=== PATIENT | female | born 1970 | race Caucasian/White ===

== ENCOUNTER 2021-09-02 14:51 | Inpatient (IN) | payer MEDICARE, MEDICAID ==
[~2021-09-02] VITALS: Ht 149.9 cm; Wt 87.3 kg
[~2021-09-02 14:51] MED LIST: ESOM40CA49 PO; LISI40TA13 PO; NOR5T PO
[2021-09-02 16:02] LABS: BASOPHILS % (AUTO) 0.4 % (0-1); EOSINOPHILS # (AUTO) 0.2 X10'3 (0-0.9); EOSINOPHILS % (AUTO) 2.5 % (0-6); HEMATOCRIT 42.9 % (35.0-45.0); HEMOGLOBIN 14.9 g/dl (12.0-16.0); LYMPHOCYTES # (AUTO) 2.5 X10'3 (1.1-4.8); LYMPHOCYTES % (AUTO) 25.7 % (21-51); MEAN CORPUSCULAR HEMOGLOBIN 30.5 PG (27.0-31.0); MEAN CORPUSCULAR HGB CONC 34.7 g/dL (33.0-36.5); MEAN PLATELET VOLUME 8.4 FL (7.4-10.4); MONOCYTES # (AUTO) 0.6 X10'3 (0-0.9); MONOCYTES % (AUTO) 6.6 % (2-12); NEUTROPHILS # (AUTO) 6.4 X10'3 (1.8-7.7); NEUTROPHILS % (AUTO) 64.8 % (42-75); PLATELET COUNT 198 X10'3 (140-440); RED BLOOD COUNT 4.88 X10'6 (4.20-5.60); RED CELL DISTRIBUTION WIDTH 13.3 % (11.5-14.5); WHITE BLOOD COUNT 9.9 X10'3 (4.5-11.0)
[2021-09-02 16:18] LABS: ALANINE AMINOTRANSFERASE 83 U/L (12-78); ALBUMIN 3.6 G/DL (3.4-5.0); ALBUMIN/GLOBULIN RATIO 0.9 (1.1-1.5); ALKALINE PHOSPHATASE 89 IU/L (46-116); ANION GAP 8 (8-16); BILIRUBIN,TOTAL 0.4 MG/DL (0.1-1.0); BLOOD UREA NITROGEN 13 MG/DL (7-18); BUN/CREATININE RATIO 14.3 (6.6-38.0); CALCIUM 9.7 MG/DL (8.5-10.1); CHLORIDE 106 MMOL/L (99-107); CREATININE 0.91 MG/DL (0.40-0.90); SODIUM 140 MMOL/L (135-145); TOTAL CARBON DIOXIDE 25.8 MMOL/L (24-32); TOTAL PROTEIN 7.5 G/DL (6.4-8.2); eGFR 65 ML/MIN
[2021-09-02 16:20] LABS: GLUCOSE 121 MG/DL (70-104); POTASSIUM 3.7 MMOL/L (3.5-5.1)
[2021-09-02 16:33] LABS: ASPARTATE AMINO TRANSFERASE 43 U/L (10-37)
[2021-09-02] MEDS ORDERED: enoxaparin 100mg/ml syringe SUBCUT ONE (21:15)
[2021-09-02] MEDS ORDERED: nitroGLYCERIN 1gm ointment UD TP ONE (21:15)
[2021-09-02] MEDS ORDERED: enoxaparin 80mg/0.8ml syringe SUBCUT ONE (21:15)
[2021-09-02] MEDS ORDERED: ASPI-1397 PO (21:26)
[2021-09-02] MEDS ORDERED: BACL10TA2 PO (21:26)
[2021-09-02] MEDS ORDERED: ATOR-2 PO (21:26)
[2021-09-02] MEDS ORDERED: ISOS120T13 PO (21:26)
[2021-09-02] MEDS ORDERED: OLOP2.5D12 EACHEYE (21:26)
[2021-09-02] MEDS ORDERED: TRAM50TA2 PO (21:26)
[2021-09-02] MEDS ORDERED: ESCI20TA39 PO (21:26)
[2021-09-02] MEDS ORDERED: NITR0.4T48 PO (21:26)
[2021-09-02] MEDS ORDERED: METO-395 PO (21:26)
[2021-09-02] MEDS ORDERED: EZET10TA48 PO (21:26)
[2021-09-02] MEDS ORDERED: magnesium 2GM in 50ml NS 50 ML IV PRN (21:50)
[2021-09-02] MEDS ORDERED: acetaminophen 325mg tablet PO PRN (21:50)
[2021-09-02] MEDS ORDERED: potassium CL 10mEq/100ml bag 100 ML IV PRN (21:50)
[2021-09-02] MEDS ORDERED: ondansetron/PF 4mg/2ml inj IV PRN (21:50)
[2021-09-02] MEDS ORDERED: metoprolol tartrate 1mg/ml inj IV PRN (21:50)
[2021-09-02] MEDS ORDERED: nitroGLYCERIN 0.4mg SUBLingual tab SL PRN (21:50)
[2021-09-02] MEDS ORDERED: magnesium hydroxide 30ml (MOM) UD suspension PO PRN (21:50)
[2021-09-02] MEDS ORDERED: magnesium 4gm in 100ml NS 100 ML IV PRN (21:50)
[2021-09-02] MEDS ORDERED: regadenoson 0.4mg/5ml syringe IV PRN (21:50)
[2021-09-02] MEDS ORDERED: aminophylline 250mg/10ml inj. IV PRN (21:50)
[2021-09-02] MEDS ORDERED: POTASSIUM BICARB 20meq eff tab 20 MEQ TABLET.EFF PO PRN ×2 (21:50)
[2021-09-02] MEDS ORDERED: mag hydrox/Alum hydrox/simeth 30ml oral suspension PO PRN (21:50)
[2021-09-02] MEDS ORDERED: PERFLUTREN PROTEIN-A MICROSPHR (Optison) 0.22 MG/ML 3ML VIAL IV ONE (21:50)
[2021-09-03] MEDS ORDERED: hydrALAZINE 20mg/ml inj. IV PRN (00:15)
[2021-09-03 01:00] VITALS: BP 172/52
[2021-09-03] MEDS: traMADol 50MG tablet PO PRN ×2 (01:19→08:03)
[2021-09-03] MEDS: normal saline 1000ml 1,000 ML IV SCH ×2 (01:27→07:50)
--- NOTE | 2021-09-03 01:55 | NUR ---
Page sent to [facility] informing of new patient needing BiPap at [facility] for sleep apnea.
[2021-09-03 02:00] VITALS: BP 124/67
[2021-09-03 06:00] VITALS: BP 127/72
[2021-09-03 06:41] LABS: BASOPHILS % (AUTO) 0.6 % (0-1); EOSINOPHILS # (AUTO) 0.3 X10'3 (0-0.9); EOSINOPHILS % (AUTO) 3.8 % (0-6); HEMATOCRIT 39.7 % (35.0-45.0); HEMOGLOBIN 13.7 g/dl (12.0-16.0); LYMPHOCYTES # (AUTO) 2.6 X10'3 (1.1-4.8); MEAN CORPUSCULAR HEMOGLOBIN 30.8 PG (27.0-31.0); MEAN CORPUSCULAR HGB CONC 34.6 g/dL (33.0-36.5); MEAN CORPUSCULAR VOLUME 89.1 FL (78-98); MEAN PLATELET VOLUME 8.4 FL (7.4-10.4); MONOCYTES # (AUTO) 0.4 X10'3 (0-0.9); MONOCYTES % (AUTO) 5.4 % (2-12); NEUTROPHILS # (AUTO) 4.4 X10'3 (1.8-7.7); NEUTROPHILS % (AUTO) 57.2 % (42-75); PLATELET COUNT 171 X10'3 (140-440); RED BLOOD COUNT 4.46 X10'6 (4.20-5.60); RED CELL DISTRIBUTION WIDTH 13.4 % (11.5-14.5); WHITE BLOOD COUNT 7.7 X10'3 (4.5-11.0)
[2021-09-03 07:02] LABS: ALANINE AMINOTRANSFERASE 66 U/L (12-78); ALBUMIN 3.3 G/DL (3.4-5.0); ALKALINE PHOSPHATASE 81 IU/L (46-116); ANION GAP 7 (8-16); ASPARTATE AMINO TRANSFERASE 30 U/L (10-37); BILIRUBIN,TOTAL 0.4 MG/DL (0.1-1.0); BLOOD UREA NITROGEN 15 MG/DL (7-18); BUN/CREATININE RATIO 23.8 (6.6-38.0); CALCIUM 9.1 MG/DL (8.5-10.1); CHLORIDE 106 MMOL/L (99-107); CHOL/HDL RATIO 8.1 (0.00-4.99); CHOLESTEROL 210 MG/DL (0-200); CREATININE 0.63 MG/DL (0.40-0.90); GLUCOSE 106 MG/DL (70-104); HDL CHOLESTEROL 26 MG/DL (35-60); LDL CHOLESTEROL 70 MG/DL (50-100); MAGNESIUM 1.8 MG/DL (1.5-2.4); POTASSIUM 3.9 MMOL/L (3.5-5.1); SODIUM 139 MMOL/L (135-145); TOTAL CARBON DIOXIDE 25.9 MMOL/L (24-32); TOTAL PROTEIN 6.7 G/DL (6.4-8.2); TRIGLYCERIDES 720 MG/DL (20-135); eGFR > 90 ML/MIN
[2021-09-03] MEDS ORDERED: metoprolol succinate 25mg (24-HOUR) SR. Tablet PO SCH (08:00)
[2021-09-03] MEDS ORDERED: isosorbide mononitrate 30mg tab.SR.24H PO SCH (08:00)
[2021-09-03] MEDS ORDERED: ezetimibe 10mg tablet PO SCH (08:00)
[2021-09-03] MEDS ORDERED: baclofen 10mg tablet PO SCH (08:00)
[2021-09-03] MEDS ORDERED: ESCITALOPRAM OXALATE 5 MG TABLET PO SCH (08:00)
[2021-09-03] MEDS ORDERED: atorvastatin 20mg tablet PO SCH (08:00)
[2021-09-03] MEDS ORDERED: tetrahydrozoline 0.05% 15ml ophthalmic drops EACHEYE SCH (08:00)
[2021-09-03] MEDS ORDERED: K and/or MAG REPLACEMENT MC SCH (08:00)
[2021-09-03] MEDS ORDERED: aspirin 81mg, enteric-coated 1 TAB TABLET.DR PO SCH (08:00)
[2021-09-03 09:32] VITALS: BP 150/68
[2021-09-03 11:00] VITALS: BP 173/88
[2021-09-03 15:00] VITALS: BP 131/84
[2021-09-03] MEDS ORDERED: enoxaparin 40mg/0.4ml syringe SQ SCH (20:00)
--- NOTE | 2021-09-07 16:00 | NUR ---
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 [facility], and his nurse whom calls daily.Verbalizes understanding of s/s that warrant 12-04/ER visit for further evaluation;Denies emergent SOB,resp distress, dyspnea,n/v, headache, blurry vision, s/s of Stroke/BE-FAST,abd pain dysuria.Verbalizes she smokes, reiterated the need to stop smoking especially now with c/o chest pain.Verbalizes understanding of Rx;, why prescribed; continues/resumes current Rx as ordered.Verbalizes video appointment scheduled with .Verbalizes the staff were wonderful;however, did not like the wait of six hours in the ER.Needs met,questions/concerns addressed at [facility].No further questions/concerns regarding recent hospital stay and/or DC status at this time. Addendum: 09/08/21 at 0837 by Joleen Bernal RN Reiterated to Patient to call -11 if pain is not relieved with NTG.
== END 2021-09-03 16:15 | disposition home or self-care (01) | DRG 392 ==
LOC: ER 14:52 → ED HOLD 21:56 → OBSVTOIN 22:21 → PCU 3S 09-03 01:00
PROVIDERS: ADMIT Family Medicine; ATTEND Internal Medicine
PROC: 4A02XM4 Measurement of Cardiac Total Activity, External Approach (ICD-10-PCS; principal; 2021-09-03)
PROC: 3E033HZ Introduction of Radioactive Substance into Peripheral Vein, Percutaneous Approach (ICD-10-PCS; 2021-09-03)
PROC: 5A09357 Assistance with Respiratory Ventilation, Less than 24 Consecutive Hours, Continuous Positive Airway Pressure (ICD-10-PCS; 2021-09-03)
DX: K21.9 Gastro-esophageal reflux disease without esophagitis (principal); K52.1 Toxic gastroenteritis and colitis; R07.89 Other chest pain; T45.2X5A Adverse effect of vitamins, initial encounter; E78.5 Hyperlipidemia, unspecified; M50.30 Other cervical disc degeneration, unspecified cervical region; M51.36 Other intervertebral disc degeneration, lumbar region; I10 Essential (primary) hypertension; I25.10 Atherosclerotic heart disease of native coronary artery without angina pectoris; F17.210 Nicotine dependence, cigarettes, uncomplicated; E55.9 Vitamin D deficiency, unspecified; M81.0 Age-related osteoporosis without current pathological fracture; Z80.0 Family history of malignant neoplasm of digestive organs; Z80.3 Family history of malignant neoplasm of breast; Z80.49 Family history of malignant neoplasm of other genital organs; Z85.41 Personal history of malignant neoplasm of cervix uteri; Z90.710 Acquired absence of both cervix and uterus; Z95.1 Presence of aortocoronary bypass graft; Y92.89 Other specified places as the place of occurrence of the external cause; Z88.8 Allergy status to other drugs, medicaments and biological substances; Z90.49 Acquired absence of other specified parts of digestive tract; Z98.891 History of uterine scar from previous surgery; Z79.899 Other long term (current) drug therapy; Z79.82 Long term (current) use of aspirin; Z71.6 Tobacco abuse counseling
CPT/HCPCS: 36415; 71045; 78452; 80053; 80061; 83735; 83880; 84484; 85025; 87081; 93017; 93306; 94660; 94760; 99285; A9500; G0378; J0360; J1650; J2405; J2785; J7030

== ENCOUNTER 2023-08-09 01:23 | Observation (INO) | payer MEDICARE, MEDICAID ==
[~2023-08-09] VITALS: Ht 147.3 cm; Wt 84.5 kg
[~2023-08-09 01:23] MED LIST changes: +ASPI-1397 PO; +ATOR-2 PO; +BACL10TA2 PO; +ESCI20TA39 PO; -ESOM40CA49 PO; +EZET10TA48 PO; +ISOS120T13 PO; -LISI40TA13 PO; +METO-395 PO; +NITR0.4T48 PO; -NOR5T PO; +OLOP2.5D12 EACHEYE; +TRAM50TA2 PO
[2023-08-09] MEDS: morphine 4 MG/ML inj SYRINge IV ONE ×2 (01:57→04:25)
[2023-08-09] MEDS: aspirin 81mg tab.chew PO ONE (02:00)
[2023-08-09 02:15] LABS: BASOPHILS % (AUTO) 0.4 % (0-1); EOSINOPHILS # (AUTO) 0.2 X10'3 (0-0.9); EOSINOPHILS % (AUTO) 1.9 % (0-6); HEMATOCRIT 42.7 % (35.0-45.0); HEMOGLOBIN 14.2 g/dl (12.0-16.0); LYMPHOCYTES # (AUTO) 2.7 X10'3 (1.1-4.8); LYMPHOCYTES % (AUTO) 26.3 % (21-51); MEAN CORPUSCULAR HEMOGLOBIN 30.3 PG (27.0-31.0); MEAN CORPUSCULAR HGB CONC 33.3 g/dL (33.0-36.5); MEAN CORPUSCULAR VOLUME 90.9 FL (78-98); MEAN PLATELET VOLUME 8.9 FL (7.4-10.4); MONOCYTES # (AUTO) 0.6 X10'3 (0-0.9); MONOCYTES % (AUTO) 6.3 % (2-12); NEUTROPHILS # (AUTO) 6.5 X10'3 (1.8-7.7); NEUTROPHILS % (AUTO) 65.1 % (42-75); PLATELET COUNT 189 X10'3 (140-440); RED CELL DISTRIBUTION WIDTH 13.9 % (11.5-14.5); WHITE BLOOD COUNT 10.1 X10'3 (4.5-11.0)
[2023-08-09 02:46] LABS: PROTHROMBIN TIME 10.9 SECONDS (9.0-12.0)
[2023-08-09 02:56] LABS: ALBUMIN 3.9 G/DL (3.4-5.0); ANION GAP 12 (8-16); BLOOD UREA NITROGEN 15 MG/DL (7-18); BUN/CREATININE RATIO 22.7 (10.0-20.0); CALCIUM 9.9 MG/DL (8.5-10.1); CHLORIDE 101 MMOL/L (99-107); CREATININE 0.66 MG/DL (0.40-0.90); GLUCOSE 97 MG/DL (70-104); PRO BRAIN NATRIURETIC PEPTIDE 150 PG/ML (0-125); SODIUM 137 MMOL/L (135-145); eCRCL 64 ML/MIN; eGFR > 90 ML/MIN
[2023-08-09 02:58] LABS: POTASSIUM 4.2 MMOL/L (3.5-5.1)
[2023-08-09] MEDS ORDERED: potassium Cl 20 mEq SR tablet PO PRN ×2 (05:05)
[2023-08-09] MEDS ORDERED: mag hydrox/Alum hydrox/simeth 30ml oral suspension PO PRN (05:05)
[2023-08-09] MEDS ORDERED: acetaminophen 325mg tablet PO PRN (05:05)
[2023-08-09] MEDS ORDERED: magnesium Cl slow-release 64mg tablet PO PRN (05:05)
[2023-08-09] MEDS ORDERED: magnesium 2GM in 50ml NS 50 ML IV PRN (05:05)
[2023-08-09] MEDS ORDERED: magnesium 4gm in 100ml NS 100 ML IV PRN (05:05)
[2023-08-09] MEDS ORDERED: potassium Cl 40MEQ/1/2NS 520ml 520 ML IV PRN (05:05)
[2023-08-09] MEDS ORDERED: DEXTROSE 15 GM of carb/4 tabs (each vial/BOTTLE has 4 tablets) PO PRN ×2 (05:30)
[2023-08-09] MEDS ORDERED: glucagon, human recombinant 1mg kit SUBCUT PRN (05:30)
[2023-08-09] MEDS ORDERED: dextrose 50%-water 50ml dispensing syringe IV PRN ×2 (05:30)
[2023-08-09] MEDS: INSULIN LISPRO 100 UNIT/ML INSULN.PEN MULTI-DOSE SQ SCH (07:00)
[2023-08-09] MEDS: ondansetron/PF 4mg/2ml inj IV PRN (07:23)
[2023-08-09] MEDS: enoxaparin 40mg/0.4ml syringe SUBCUT SCH (07:26)
[2023-08-09] MEDS: K and/or MAG REPLACEMENT MC SCH (08:00)
[2023-08-09 08:11] LABS: D-DIMER 0.38 MG/L FEU (0-0.50)
[2023-08-09 09:40] LABS: CHOLESTEROL 116 MG/DL (0-200); HDL CHOLESTEROL 58 MG/DL (35-60); LDL CHOLESTEROL 45 MG/DL (50-100); TRIGLYCERIDES 110 MG/DL (20-135)
[2023-08-09] MEDS: atorvastatin 20mg tablet PO SCH (10:55)
[2023-08-09] MEDS: metoprolol succinate 25mg (24-HOUR) SR. Tablet PO SCH (10:56)
[2023-08-09 11:33] LABS: BILIRUBIN,URINE NEGATIVE (Neg); COLOR,URINE YELLOW (Yellow); GLUCOSE, URINE >=1000 mg/dl (Neg); KETONES,URINE NEGATIVE (Neg); LEUKOCYTE ESTERASE ,URINE NEGATIVE (Neg); NITRITES, URINE NEGATIVE (Neg); OCCULT BLOOD,URINE NEGATIVE (Neg); PROTEIN,URINE NEGATIVE (Neg); UROBILINOGEN,URINE 0.2 E.U/dL (0.2-1.0)
[2023-08-09] MEDS ORDERED: MAGN500C17 PO (11:34)
[2023-08-09] MEDS ORDERED: AMLO5TAB21 PO (11:35)
[2023-08-09] MEDS ORDERED: FLUO20CA39 PO (11:37)
[2023-08-09 11:40] LABS: BACTERIA,URINE 3+ /HPF (Neg); CLARITY,URINE SLIGHTLY CLOUDY (Clear); SQUAMOUS EPITHELIAL CELL,UR MANY /LPF (FEW); UA COLLECTION TYPE NON-SPECIFIED
[2023-08-09 11:41] LABS: RBC,URINE 0-2 /HPF (0-2)
[2023-08-09 11:42] LABS: URINE AMPHETAMINE SCREEN NEGATIVE (Neg); URINE BARBITUATE SCREEN NEGATIVE (Neg); URINE BENZODIAZEPINES SCREEN NEGATIVE (Neg); URINE CANNABINOID SCREEN NEGATIVE (Neg); URINE COCAINE SCREEN NEGATIVE (Neg); URINE METHADONE SCREEN NEGATIVE (Neg); URINE OPIATE SCREEN NEGATIVE (Neg); URINE PHENCYCLIDINE SCREEN NEGATIVE (Neg)
[2023-08-09] MEDS ORDERED: CLOP75TA34 PO (12:00)
[2023-08-09] MEDS ORDERED: FAMO40TA58 PO (12:00)
[2023-08-09] MEDS ORDERED: ISOS60TA71 PO (12:00)
[2023-08-09] MEDS ORDERED: SEMA0.258 SUBCUT (12:00)
[2023-08-09] MEDS ORDERED: OLME20TA69 PO (12:00)
[2023-08-09] MEDS ORDERED: AMLO10TA PO (12:00)
[2023-08-09] MEDS ORDERED: RANO10005 PO (12:00)
[2023-08-09] MEDS ORDERED: EMPA25TA PO (12:00)
[2023-08-09] MEDS ORDERED: PIOG15TA67 PO (12:00)
[2023-08-09] MEDS ORDERED: ICOS1CAP PO (12:00)
[2023-08-09] MEDS ORDERED: ROSU40TA22 PO (12:00)
[2023-08-09] MEDS ORDERED: nitroGLYCERIN 0.4mg SUBLingual tab SL PRN (12:30)
[2023-08-09] MEDS: morphine 2 MG/ML inj. syringe IV PRN ×2 (12:30→23:44)
[2023-08-09] MEDS: aspirin 81mg, enteric-coated 1 TAB TABLET.DR PO SCH (12:53)
[2023-08-09] MEDS: clopidogrel 75mg tablet PO SCH (12:53)
[2023-08-09] MEDS: isosorbide mononitrate 30mg tab.SR.24H PO SCH (13:18)
[2023-08-09] MEDS: RANOLAZINE PO SCH (20:00)
[2023-08-09] MEDS: famotidine 20mg tablet PO SCH (22:31)
[2023-08-09 23:30] VITALS: BP 109/55; PULSE 56; RESP 20; TEMP 97.5; O2SAT 96
[2023-08-10 02:00] VITALS: BP 112/61; PULSE 59; RESP 18; TEMP 98.2; O2SAT 96
[2023-08-10 06:00] VITALS: BP 93/48; PULSE 56; RESP 15; TEMP 97.8; O2SAT 95
[2023-08-10 06:53] LABS: BASOPHILS % (AUTO) 0.5 % (0-1); EOSINOPHILS # (AUTO) 0.2 X10'3 (0-0.9); EOSINOPHILS % (AUTO) 2.7 % (0-6); HEMATOCRIT 42.7 % (35.0-45.0); HEMOGLOBIN 14.5 g/dl (12.0-16.0); LYMPHOCYTES # (AUTO) 2.1 X10'3 (1.1-4.8); LYMPHOCYTES % (AUTO) 30.3 % (21-51); MEAN CORPUSCULAR HGB CONC 33.9 g/dL (33.0-36.5); MEAN CORPUSCULAR VOLUME 91.3 FL (78-98); MEAN PLATELET VOLUME 8.8 FL (7.4-10.4); MONOCYTES # (AUTO) 0.4 X10'3 (0-0.9); MONOCYTES % (AUTO) 5.5 % (2-12); NEUTROPHILS # (AUTO) 4.2 X10'3 (1.8-7.7); PLATELET COUNT 189 X10'3 (140-440); RED BLOOD COUNT 4.67 X10'6 (4.20-5.60); RED CELL DISTRIBUTION WIDTH 13.6 % (11.5-14.5); WHITE BLOOD COUNT 6.9 X10'3 (4.5-11.0)
[2023-08-10 07:18] LABS: ALBUMIN 3.4 G/DL (3.4-5.0); ANION GAP 7 (8-16); BLOOD UREA NITROGEN 15 MG/DL (7-18); BUN/CREATININE RATIO 21.4 (10.0-20.0); CALCIUM 9.8 MG/DL (8.5-10.1); CHLORIDE 102 MMOL/L (99-107); CHOL/HDL RATIO 2.2 (0.00-4.99); CHOLESTEROL 106 MG/DL (0-200); GLUCOSE 81 MG/DL (70-104); HDL CHOLESTEROL 48 MG/DL (35-60); LDL CHOLESTEROL 42 MG/DL (50-100); SODIUM 136 MMOL/L (135-145); TOTAL CARBON DIOXIDE 27.2 MMOL/L (24-32); TRIGLYCERIDES 121 MG/DL (20-135); eCRCL 61 ML/MIN; eGFR 88 ML/MIN
[2023-08-10 07:19] LABS: POTASSIUM 4.6 MMOL/L (3.5-5.1)
[2023-08-10] MEDS ORDERED: isosorbide mononitrate 30mg tab.SR.24H PO SCH (08:00)
[2023-08-10] MEDS: FLUoxetine 20mg capsule PO SCH (08:33)
[2023-08-10] MEDS: magnesium hydroxide 30ml (MOM) UD suspension PO PRN (08:49)
[2023-08-10 10:00] VITALS: BP 125/84; PULSE 89; RESP 18; TEMP 98.7; O2SAT 99
[2023-08-10 10:55] VITALS: RESP 16
== END 2023-08-10 13:30 | disposition home or self-care (01) ==
LOC: ER 01:24 → INTOOBSV 04:38 → ED HOLD 04:38 → EDBEDREQ 21:28 → PCU 3S 23:25
PROVIDERS: ADMIT Internal Medicine Sleep Medicine; ATTEND Family Medicine
DX: I25.119 Atherosclerotic heart disease of native coronary artery with unspecified angina pectoris (principal); I11.0 Hypertensive heart disease with heart failure; I50.22 Chronic systolic (congestive) heart failure; E11.9 Type 2 diabetes mellitus without complications; G47.33 Obstructive sleep apnea (adult) (pediatric); M81.0 Age-related osteoporosis without current pathological fracture; I49.3 Ventricular premature depolarization; Z90.710 Acquired absence of both cervix and uterus; Z90.5 Acquired absence of kidney; Z85.41 Personal history of malignant neoplasm of cervix uteri; Z85.42 Personal history of malignant neoplasm of other parts of uterus; Z95.1 Presence of aortocoronary bypass graft; Z88.1 Allergy status to other antibiotic agents; Z79.899 Other long term (current) drug therapy
CPT/HCPCS: 36415; 71045; 80048; 80061; 80305; 81001; 82948; 83036; 83880; 84484; 85025; 85379; 85610; 87081; 87088; 93005; 93306; 96372; 96374; 96375; 96376; 99285; G0378; J1650; J2270; J2405; J1815

== ENCOUNTER 2024-04-02 12:28 | Emergency (ER) | payer MEDICARE, MEDICAID ==
[~2024-04-02] VITALS: Ht 147.3 cm; Wt 86.0 kg
[~2024-04-02 12:28] MED LIST changes: +AMLO10TA PO; -ATOR-2 PO; -BACL10TA2 PO; +CLOP75TA34 PO; +EMPA25TA PO; -ESCI20TA39 PO; +FAMO40TA58 PO; +FLUO20CA39 PO; +ICOS1CAP PO; -ISOS120T13 PO; +ISOS60TA71 PO; +MAGN500C17 PO; +OLME20TA69 PO; +PIOG15TA67 PO; +RANO10005 PO; +ROSU40TA89 PO; +SEMA0.258 SUBCUT
[2024-04-02 13:49] LABS: ALANINE AMINOTRANSFERASE 48 U/L (12-78); ALBUMIN 3.7 G/DL (3.4-5.0); ALBUMIN/GLOBULIN RATIO 1.2 (1.1-1.5); ALKALINE PHOSPHATASE 66 IU/L (46-116); ANION GAP 9 (8-16); ASPARTATE AMINO TRANSFERASE 52 U/L (10-37); BILIRUBIN,TOTAL 0.6 MG/DL (0.1-1.0); BLOOD UREA NITROGEN 14 MG/DL (7-18); BUN/CREATININE RATIO 24.6 (10.0-20.0); CHLORIDE 105 MMOL/L (99-107); CREATININE 0.57 MG/DL (0.40-0.90); GLUCOSE 104 MG/DL (70-104); POTASSIUM 4.7 MMOL/L (3.5-5.1); SODIUM 139 MMOL/L (135-145); TOTAL PROTEIN 6.9 G/DL (6.4-8.2); eCRCL 74 ML/MIN; eGFR > 90 ML/MIN
[2024-04-02 13:51] LABS: BASOPHILS % (AUTO) 0.5 % (0-1); EOSINOPHILS # (AUTO) 0.2 X10'3 (0-0.9); EOSINOPHILS % (AUTO) 2.8 % (0-6); HEMATOCRIT 41.2 % (35.0-45.0); HEMOGLOBIN 14.2 g/dl (12.0-16.0); LYMPHOCYTES # (AUTO) 1.8 X10'3 (1.1-4.8); LYMPHOCYTES % (AUTO) 29.1 % (21-51); MEAN CORPUSCULAR HEMOGLOBIN 30.9 PG (27.0-31.0); MEAN CORPUSCULAR HGB CONC 34.4 g/dL (33.0-36.5); MEAN CORPUSCULAR VOLUME 89.8 FL (78-98); MEAN PLATELET VOLUME 9.6 FL (7.4-10.4); MONOCYTES # (AUTO) 0.5 X10'3 (0-0.9); MONOCYTES % (AUTO) 8.3 % (2-12); NEUTROPHILS # (AUTO) 3.7 X10'3 (1.8-7.7); NEUTROPHILS % (AUTO) 59.3 % (42-75); PLATELET COUNT 169 X10'3 (140-440); RED BLOOD COUNT 4.59 X10'6 (4.20-5.60); RED CELL DISTRIBUTION WIDTH 13.3 % (11.5-14.5); WHITE BLOOD COUNT 6.2 X10'3 (4.5-11.0)
[2024-04-02 13:56] LABS: PRO BRAIN NATRIURETIC PEPTIDE 278 PG/ML (0-125)
[2024-04-02 17:18] VITALS: TEMP 98.6
[2024-04-02] MEDS ORDERED: OMEP40CA21 PO (19:34)
[2024-04-02] MEDS: mag hydrox/Alum hydrox/simeth 30ml oral suspension PO ONE (19:41)
[2024-04-02] MEDS: LIDOcaine 2% Viscous 15ml cup MM ONE (19:41)
[2024-04-02] MEDS: pantoprazole 40 MG vial IV ONE (19:42)
[2024-04-02 19:43] VITALS: BP 137/74; PULSE 58; RESP 16; O2SAT 97
== END 2024-04-02 19:56 | disposition home or self-care (01) ==
LOC: ER 12:29
DX: R07.89 Other chest pain (principal); I11.0 Hypertensive heart disease with heart failure; I50.9 Heart failure, unspecified; Z85.41 Personal history of malignant neoplasm of cervix uteri; Z90.710 Acquired absence of both cervix and uterus; Z95.1 Presence of aortocoronary bypass graft; Z90.49 Acquired absence of other specified parts of digestive tract; Z88.1 Allergy status to other antibiotic agents; Z79.82 Long term (current) use of aspirin; Z79.899 Other long term (current) drug therapy
CPT/HCPCS: 36415; 71045; 80053; 83880; 84484; 85025; 93005; 96374; 99285; J2470